=== PATIENT | female | born 1955 | race Caucasian/White ===

== ENCOUNTER 2019-11-17 01:34 | Emergency (ER) | payer OTHER ==
[~2019-11-17] VITALS: Ht 152.4 cm; Wt 54.4 kg
[2019-11-17] MEDS ORDERED: PEPCID40 MG PO (04:35)
[2019-11-17] MEDS ORDERED: ZOFRAN4 MG PO (04:35)
== END 2019-11-17 04:46 | disposition home or self-care (01) ==
LOC: ER 01:34
DX: K29.60 Other gastritis without bleeding (principal)

== ENCOUNTER 2019-11-20 23:30 | Inpatient (IN) | payer OTHER ==
[~2019-11-20] VITALS: Ht 152.4 cm; Wt 54.4 kg
[~2019-11-20 23:30] MED LIST: PEPCID40 MG PO; ZOFRAN4 MG PO
== END 2019-12-04 12:47 | disposition home or self-care (01) | DRG 418 ==
LOC: ER 23:30 → MEDI 11-21 12:13 → SEC-K 11-21 12:13 → MEDI 11-21 13:51
PROVIDERS: Surgery; ADMIT Internal Medicine; ATTEND Internal Medicine
PROC: BF37ZZZ Magnetic Resonance Imaging (MRI) of Pancreas (ICD-10-PCS; 2019-11-21)
PROC: BW40ZZZ Ultrasonography of Abdomen (ICD-10-PCS; 2019-11-21)
PROC: 02HV33Z Insertion of Infusion Device into Superior Vena Cava, Percutaneous Approach (ICD-10-PCS; 2019-11-26)
PROC: 0DNW4ZZ Release Peritoneum, Percutaneous Endoscopic Approach (ICD-10-PCS; 2019-11-30)
PROC: 0FT44ZZ Resection of Gallbladder, Percutaneous Endoscopic Approach (ICD-10-PCS; principal; 2019-11-30 07:00)
DX: K85.10 Biliary acute pancreatitis without necrosis or infection (principal); K80.64 Calculus of gallbladder and bile duct with chronic cholecystitis without obstruction; E86.0 Dehydration; K66.0 Peritoneal adhesions (postprocedural) (postinfection)

== ENCOUNTER → 2019-12-27 13:00 | Outpatient (CLI) | payer OTHER | END | disposition home or self-care (01) | LOC: PPH VACUNA 13:00 | DX: Z23 Encounter for immunization (principal) ==

== ENCOUNTER 2020-01-31 13:34 | Outpatient (CLI) | payer OTHER | END 2020-01-31 13:40 | disposition home or self-care (01) | LOC: RAD 13:34 | PROVIDERS: ATTEND General Practice | DX: R05 Cough (principal) ==

== ENCOUNTER 2020-02-07 14:21 | Outpatient (CLI) | payer OTHER | END 2020-02-07 14:29 | disposition home or self-care (01) | LOC: MAMO-SONO 14:21 | PROVIDERS: ATTEND Surgery | DX: N60.11 Diffuse cystic mastopathy of right breast (principal); N60.12 Diffuse cystic mastopathy of left breast ==

== ENCOUNTER 2020-12-10 08:00 | Outpatient (CLI) | payer OTHER | END 2020-12-10 08:30 | disposition home or self-care (01) | LOC: PPH VACUNA 08:00 | PROVIDERS: ATTEND Emergency Medicine Pediatric Emergency Medicine | DX: Z23 Encounter for immunization (principal) ==

== ENCOUNTER 2021-08-20 14:01 | Outpatient (CLI) | payer OTHER | END 2021-08-20 14:05 | disposition home or self-care (01) | LOC: LAB 14:01 | PROVIDERS: ATTEND General Practice | DX: R07.0 Pain in throat (principal) ==

== ENCOUNTER 2021-11-27 10:33 | Outpatient (CLI) | payer OTHER | END 2021-11-27 10:38 | disposition home or self-care (01) | LOC: PPH VACUNA 10:33 | PROVIDERS: ATTEND Emergency Medicine Pediatric Emergency Medicine | DX: Z23 Encounter for immunization (principal) ==

== ENCOUNTER 2023-01-07 08:34 | Outpatient (CLI) | payer OTHER | END 2023-01-07 08:45 | disposition home or self-care (01) | LOC: MAMO-SONO 08:34 | PROVIDERS: ATTEND Surgery | DX: Z12.31 Encounter for screening mammogram for malignant neoplasm of breast (principal); N60.11 Diffuse cystic mastopathy of right breast ==

== ENCOUNTER 2023-11-03 14:14 | Outpatient (CLI) | payer OTHER | END 2023-11-03 14:19 | disposition home or self-care (01) | LOC: LAB 14:14 | PROVIDERS: ATTEND Preventive Medicine Occupational Medicine | DX: A49.1 Streptococcal infection, unspecified site (principal); A02.9 Salmonella infection, unspecified; K62.89 Other specified diseases of anus and rectum ==

== ENCOUNTER 2024-01-05 11:52 | Outpatient (CLI) | payer OTHER | END 2024-01-05 11:56 | disposition home or self-care (01) | LOC: MAMO-SONO 11:52 → EDBD 11:52 → MAMO-SONO 11:56 | PROVIDERS: ATTEND Surgery | DX: N60.11 Diffuse cystic mastopathy of right breast (principal); N60.12 Diffuse cystic mastopathy of left breast ==

== ENCOUNTER 2024-02-05 11:15 | Outpatient (CLI) | payer OTHER | END 2024-02-05 11:25 | disposition home or self-care (01) | LOC: PPH VACUNA 11:15 | PROVIDERS: ATTEND Emergency Medicine Pediatric Emergency Medicine | DX: Z23 Encounter for immunization (principal) ==

== ENCOUNTER 2024-03-25 21:57 | Emergency (ER) | payer OTHER ==
[~2024-03-25] VITALS: Ht 152.4 cm; Wt 59.0 kg
[2024-03-25] MEDS ORDERED: FAMOTIDINE/PF 20 MG/2 ML VIAL IV PUSH ONE (23:45)
[2024-03-25] MEDS ORDERED: ONDANSETRON HCL 2 MG/ML VIAL IV ONE (23:45)
[2024-03-25] MEDS ORDERED: 0.9 % SODIUM CHLORIDE 1,000 ML IV SCH (23:45)
[2024-03-26] MEDS ORDERED: FAMOTIDINE/PF 20 MG/2 ML VIAL ONE (00:16)
[2024-03-26] MEDS ORDERED: ONDANSETRON HCL 2 MG/ML VIAL ONE (00:16)
[2024-03-26 01:23] LABS: HEMOGLOBIN 12.6 g/dL (12.0-15.00); MEAN CELL VOLUME 83.3 fL (80.00-100.00); MEAN CORPUSCULAR HEMOGLOBIN 27.5 pg (27.00-32.0); MEAN CORPUSCULAR HGB CONC 33.1 g/dl (32.0-36.0); PLATELET COUNT 176 K/uL (150-450); RED BLOOD COUNT 4.56 M/uL (4.00-6.00)
[2024-03-26 02:06] LABS: ALBUMIN 3.8 gm/dL (3.4-5.0); BILIRUBIN TOTAL 0.49 mg/dL (0.3-1.2); CALCIUM 8.9 mg/dL (8.5-10.1); CREATININE SERUM 0.64 mg/dL (0.55-1.02); GFR 91.74; GLOBULINA 3.5 G/DL (2.4-3.5); POTASSIUM 4.57 mEq/L (3.5-5.1); TOTAL PROTEIN 7.3 gm/dL (6.4-8.2)
== END 2024-03-26 06:20 | disposition home or self-care (01) ==
LOC: ER 21:57
PROVIDERS: Emergency Medicine
DX: R19.7 Diarrhea, unspecified (principal); R11.10 Vomiting, unspecified; R42 Dizziness and giddiness; Z20.822 Contact with and (suspected) exposure to COVID-19

== ENCOUNTER 2024-06-28 13:32 | Emergency (ER) | payer OTHER ==
[~2024-06-28] VITALS: Ht 157.5 cm; Wt 59.0 kg
[2024-06-28] MEDS ORDERED: FAMOtidine 10 MG/ML (4ML VIAL) IV ONE (14:00)
[2024-06-28] MEDS ORDERED: ONDANSETRON HCL 2 MG/ML VIAL IV ONE (14:00)
[2024-06-28] MEDS ORDERED: ONDANSETRON HCL 2 MG/ML VIAL ONE (14:09)
[2024-06-28] MEDS ORDERED: FAMOTIDINE/PF 20 MG/2 ML VIAL ONE (14:10)
[2024-06-28 15:09] LABS: HEMATOCRIT 42.2 % (36.0-45.00); HEMOGLOBIN 14.1 g/dL (12.0-15.00); MEAN CELL VOLUME 83.5 fL (80.00-100.00); MEAN CORPUSCULAR HEMOGLOBIN 27.9 pg (27.00-32.0); MEAN CORPUSCULAR HGB CONC 33.4 g/dl (32.0-36.0); PLATELET COUNT 204 K/uL (150-450); RED BLOOD COUNT 5.06 M/uL (4.00-6.00); RED CELL DISTRIBUTION WIDTH 13.6 % (11.5-14.5)
[2024-06-28 15:28] LABS: COVID-19 AG NEGATIVE (NEGATIVE); INFLUENZA A AG NEGATIVE (NEGATIVE)
[2024-06-28 15:35] LABS: ALBUMIN 3.8 gm/dL (3.4-5.0); BILIRUBIN TOTAL 0.71 mg/dL (0.3-1.2); CALCIUM 9.1 mg/dL (8.5-10.1); CREATININE SERUM 0.81 mg/dL (0.55-1.02); GFR 69.7; GLOBULINA 4.1 G/DL (2.4-3.5); POTASSIUM 4.6 mEq/L (3.5-5.1); TOTAL PROTEIN 7.9 gm/dL (6.4-8.2)
[2024-06-28] MEDS ORDERED: ZOFRAN8 MG PO (16:41)
[2024-06-28] MEDS ORDERED: PROTONIX40 MG PO (16:41)
== END 2024-06-28 16:57 | disposition home or self-care (01) ==
LOC: ER 13:32
PROVIDERS: General Practice
DX: R11.10 Vomiting, unspecified (principal); Z20.822 Contact with and (suspected) exposure to COVID-19

== ENCOUNTER 2024-11-29 09:25 | Emergency (ER) | payer OTHER ==
[~2024-11-29] VITALS: Ht 152.4 cm; Wt 59.0 kg
[~2024-11-29 09:25] MED LIST changes: +PROTONIX40 MG PO; +ZOFRAN8 MG PO
[2024-11-29] MEDS ORDERED: ONDANSETRON HCL 2 MG/ML VIAL IV ONE (10:00)
[2024-11-29] MEDS ORDERED: FAMOtidine 10 MG/ML (4ML VIAL) IV ONE (10:00)
[2024-11-29 10:52] LABS: BASO % 0.2 % (0.1-1.2); EOS # 0.04 (0.04-0.54); EOS % 0.7 % (0.7-7.0); LYMPH # 1.58 (1.18-3.74); LYMPH % 27.2 % (19.3-53.1); MEAN PLATELET VOLUME 9.20 fl (9.4-12.4); MONO # 0.28 (0.24-0.82); MONO % 4.8 % (4.7-12.5); NEUT # 3.85 (1.56-6.13); NEUT % 66.4 % (34.0-71.1); RED CELL DISTRIBUTION WIDTH 12.8 % (11.6-14.4)
[2024-11-29 11:01] LABS: ALT/SGPT 26.0 U/L (12-78); AST/SGOT 18.0 U/L (15-37); BILIRUBIN TOTAL 0.41 mg/dL (0.3-1.2); BUN CREA RATIO 27.0 (7.0-25.0); CREATININE SERUM 0.67 mg/dL (0.55-1.02); GFR 86.76; GLOBULINA 3.5 G/DL (2.4-3.5); GLUCOSE FASTING 108.0 mg/dL (65-100); OSMOLALITY SERUM 286.0 MOSM/KG (275-295)
[2024-11-29 11:27] LABS: COVID-19 AG NEGATIVE (NEGATIVE)
[2024-11-29] MEDS ORDERED: ANTIVERT25 M2 PO (11:33)
[2024-11-29] MEDS ORDERED: PEPCID AC20 MG PO (11:33)
== END 2024-11-29 12:10 | disposition home or self-care (01) ==
LOC: ER 09:25
PROVIDERS: General Practice
DX: R42 Dizziness and giddiness (principal); R11.10 Vomiting, unspecified; Z20.822 Contact with and (suspected) exposure to COVID-19

== ENCOUNTER 2025-01-06 05:19 | Emergency (ER) | payer OTHER ==
[~2025-01-06] VITALS: Ht 152.4 cm; Wt 59.9 kg
[~2025-01-06 05:19] MED LIST changes: +ANTIVERT25 M2 PO; +PEPCID AC20 MG PO
[2025-01-06] MEDS ORDERED: PROMETHAZINE HCL 50 MG/ML AMPUL IM STA (05:48)
[2025-01-06] MEDS ORDERED: MECLIZINE HCL25 MG PO (07:47)
== END 2025-01-06 08:11 | disposition home or self-care (01) ==
LOC: ER 05:19
DX: R42 Dizziness and giddiness (principal)

== ENCOUNTER 2025-01-10 09:03 | Outpatient (CLI) | payer OTHER ==
[~2025-01-10 09:03] MED LIST changes: +MECLIZINE HCL25 MG PO
== END 2025-01-10 09:04 | disposition home or self-care (01) ==
LOC: MAMO-SONO 09:03
PROVIDERS: ATTEND Surgery
DX: N60.11 Diffuse cystic mastopathy of right breast (principal); N60.12 Diffuse cystic mastopathy of left breast

== ENCOUNTER 2025-03-01 09:48 | Emergency (ER) | payer OTHER ==
[~2025-03-01] VITALS: Ht 152.4 cm; Wt 59.0 kg
[2025-03-01] MEDS ORDERED: 0.9 % SODIUM CHLORIDE 1,000 ML IV ONE (11:15)
[2025-03-01] MEDS ORDERED: DEXAMETHASONE SODIUM PHOSPHATE 4 MG/ML VIAL IV ONE (11:15)
[2025-03-01] MEDS ORDERED: DEXAMETHASONE SODIUM PHOSPHATE 4 MG/ML VIAL IM ONE (11:15)
[2025-03-01] MEDS ORDERED: ACETAMINOPHEN 500 MG GEL..CAP PO ONE ×2 (11:15→12:23)
[2025-03-01] MEDS ORDERED: DEXAMETHASONE SODIUM PHOSPHATE 4 MG/ML VIAL ONE (12:23)
[2025-03-01 12:45] LABS: BASO % 0.4 % (0.1-1.2); EOS # 0.00 (0.04-0.54); EOS % 0.0 % (0.7-7.0); LYMPH # 1.31 (1.18-3.74); LYMPH % 22.9 % (19.3-53.1); MEAN PLATELET VOLUME 8.90 fl (9.4-12.4); MONO # 0.37 (0.24-0.82); MONO % 6.5 % (4.7-12.5); NEUT # 3.99 (1.56-6.13); NEUT % 69.8 % (34.0-71.1); RED CELL DISTRIBUTION WIDTH 12.4 % (11.6-14.4)
[2025-03-01 13:09] LABS: URINE APPEARANCE Clear; URINE BILIRRUBIN Negative (NEGATIVE); URINE BLOOD Moderate; URINE COLOR Yellow; URINE GLUCOSE Negative (NEGATIVE); URINE KETONE Negative (NEGATIVE); URINE LEUKOCYTE Trace; URINE NITRATE Negative; URINE PROTEIN Negative (NEGATIVE); URINE UROBILINOGEN 0.2 E.U./dl
[2025-03-01 13:13] LABS: URINE EPITHELIAL CELLS 3.6 uL (0.0-38.8); URINE RBC 7.9 uL (0.0-20.8); URINE WBC 24.5 uL (0.0-23.2)
[2025-03-01 13:15] LABS: ALT/SGPT 28.0 U/L (12-78); AST/SGOT 23.0 U/L (15-37); BILIRUBIN TOTAL 0.89 mg/dL (0.3-1.2); BUN CREA RATIO 14.0 (7.0-25.0); CREATININE SERUM 0.94 mg/dL (0.55-1.02); GFR 58.7; GLOBULINA 4.4 G/DL (2.4-3.5); GLUCOSE FASTING 112.0 mg/dL (65-100); OSMOLALITY SERUM 275.0 MOSM/KG (275-295)
[2025-03-01 13:22] LABS: URINE CAST 0.28 uL (0.0-1.40)
[2025-03-01 13:32] LABS: COVID-19 AG NEGATIVE (NEGATIVE)
[2025-03-01] MEDS ORDERED: MACROBID 100 M100 MG PO (14:25)
[2025-03-01] MEDS ORDERED: CEFTRIAXONE SODIUM 1,000 MG VIAL IM ONE (14:30)
== END 2025-03-02 01:04 | disposition home or self-care (01) ==
LOC: ER 09:48
DX: B34.9 Viral infection, unspecified (principal); N39.0 Urinary tract infection, site not specified; R53.1 Weakness; R50.9 Fever, unspecified; Z20.822 Contact with and (suspected) exposure to COVID-19